=== PATIENT | female | born 1985 | race Caucasian/White ===

== ENCOUNTER 2021-11-18 08:03 | Outpatient (CLI) | payer OTHER, SELFPAY ==
--- NOTE | ~2021-11-18 | MR_ITS ---
EXAMINATION: MR shoulder LT wo con DATE: 11/18/2021 09:02 INDICATION: Left anterior shoulder pain. Possible rotator cuff tear. TECHNIQUE: Magnetic resonance imaging (MRI) of the left shoulder was performed without intravenous co ntrast. Sequences included axial PD-weighted FS FSE, coronal oblique PD-weighted FS FSE and T2-weight ed FS FSE, and sagittal oblique T2-weighted FS FSE and T1-weighted FSE. COMPARISON: None. FINDINGS: Coracoacromial arch: No significant lateral downsloping of the type II acromion. Minimal acromial tip enthesopathy and inf erior AC joint hypertrophy. Rotator cuff: 3 mm partial-thickness bursal sided tear of the distal fibers the supraspinatus at their insertion. Biceps tendon and glenoid labrum: Long and short heads of the biceps tendon are intact. No labral tear. Fluid: None. Bones/cartilage: No suspicious focal or diffuse marrow signal. Degenerative subcortical cystic changes in the humeral head. IMPRESSION: 1. 3 mm partial-thickness bursal sided supraspinous tear. Reviewed, dictated and finalized at location K.
== END 2021-11-18 08:04 ==
PROVIDERS: PCP Family Medicine
DX: S46.012A Strain of muscle(s) and tendon(s) of the rotator cuff of left shoulder, initial encounter (principal); X58.XXXA Exposure to other specified factors, initial encounter
CPT/HCPCS: 73221